=== PATIENT | male | born 1970 | race Caucasian/White ===

== ENCOUNTER 2025-05-11 12:09 | Emergency (ER) | payer OTHER ==
[~2025-05-11] VITALS: Ht 172.7 cm; Wt 108.3 kg
[2025-05-11] MEDS ORDERED: ROSUVASTATIN CA20 MG PO (12:29)
[2025-05-11] MEDS ORDERED: HYDROCHLOROTHIA25 MG PO (12:29)
[2025-05-11] MEDS ORDERED: LISINOPRIL20 MG PO (12:29)
[2025-05-11] MEDS ORDERED: METFORMIN HCL500 M1 PO (12:29)
[2025-05-11] MEDS ORDERED: METOPROLOL SUC100 MG PO (12:29)
[2025-05-11] MEDS ORDERED: LISINOPRIL40 MG PO (12:29)
[2025-05-11 13:11] LABS: BASOPHILS 0.9 % (0.2-1.2); EOSINOPHILS 5.4 % (0.8-7.0); LYMPHOCYTES 15.5 % (21.8-53.1); MCH 28.4 PG (25.7-32.2); MCHC 35.5 g/dL (32.3-36.5); MCV 80.1 fL (79.0-92.2); MONOCYTES 4.9 % (5.3-12.2); NEUTROPHILS 72.9 % (34.0-67.9); RBC 5.67 M/uL (4.63-6.08)
[2025-05-11 13:21] LABS: ALT (SGPT) 33.0 U/L (14-59); AST (SGOT) 20.0 U/L (15-37); GLOMERULAR FILTRATION RATE,EST 103.0 mL/min (>60); PROTEIN, TOTAL 6.8 g/dL (6.4-8.2); UREA NITROGEN 14.0 mg/dL (7-18)
[2025-05-11 14:40] LABS: BLOOD/HGB, URINE NEGATIVE (Negative); KETONE, URINE TRACE (Negative); LEUK ESTERASE, URINE NEGATIVE (negative); NITRITE, URINE NEGATIVE (negative)
[2025-05-11] MEDS ORDERED: FARXIGA5 MG PO (15:07)
[2025-05-11] MEDS ORDERED: NEURONTIN300 MG PO (15:07)
[2025-05-11] MEDS ORDERED: GLIPIZIDE5 MG PO (15:07)
[2025-05-11] MEDS ORDERED: GABAPENTIN 300 MG CAP PO ONE (15:15)
[2025-05-11 15:26] VITALS: BP 107/76
== END 2025-05-11 15:30 | disposition home or self-care (01) ==
LOC: ED 12:09
PROVIDERS: Emergency Medicine
DX: E11.65 Type 2 diabetes mellitus with hyperglycemia (principal); I10 Essential (primary) hypertension; Z79.84 Long term (current) use of oral hypoglycemic drugs; Z79.899 Other long term (current) drug therapy
CPT/HCPCS: 36415; 80053; 81003; 85025; 99283; A9270